=== PATIENT | female | born 1985 | race Caucasian/White ===

== ENCOUNTER 2016-05-14 11:39 | Emergency (ER) | payer MEDICARE, MEDICAID ==
[2016-05-14 12:02] VITALS: BP 129/84; PULSE 80; TEMP 97.5
[2016-05-14 12:03] VITALS: BMI 27.6
--- NOTE | 2016-05-14 12:10 | EDPRACDOC ---
- General Information Chief Complaint: Wound Stated Complaint: ABSCESS Time Seen by Provider: 05/14/16 12:03 Information Source: Patient Mode of Arrival:: Car Home Medications: Home Medications Buprenorphine HCl [Subutex] 4 mg SL DAILY 02/05/16 Clonazepam 1 mg PO BID 02/05/16 Hydrocodone/Acetaminophen [Lortab 5-325 mg Tablet] 1 each PO Q4H PRN #15 tablet 02/05/16 Ibuprofen 600 mg PO Q6H PRN #20 tablet 02/05/16 Lamotrigine [Lamictal] 100 mg PO BID 02/05/16 Naloxegol Oxalate [Movantik] 25 mg PO DAILY PRN 02/05/16 Prazosin HCl [Minipress] 2 mg PO DAILY 02/05/16 Sulfamethoxazole/Trimethoprim [Bactrim Ds Tablet] 1 tab PO BID #14 tab 02/05/16 Ziprasidone HCl [Geodon] 60 mg PO DAILY 02/05/16 Ketorolac Tromethamine [Toradol] 10 mg PO Q6H PRN #20 tab 05/14/16 Sulfamethoxazole/Trimethoprim [Bactrim Ds Tablet] 1 tab PO BID #14 tab 05/14/16 Allergies/Adverse Reactions: Allergies Allergy/AdvReac Type Severity Reaction Status Date / Time Penicillins Allergy Severe Unknown Verified 05/14/16 12:18 - History of Present Illness Onset: SEVERAL DAYS HPI: PT PRESENTS WITH RED, WARM, PAINFUL MASS UNDER HER LEFT AXILLA. STATES IT HAS BEEN THERE FOR SEVERAL DAYS. DENIES FEVER, CHILLS, NAUSEA OR VOMITING. Location: Reports: Extremity (LEFT AXILLA) Last Tetanus: No Relevent History Of: Reports: IV Drug Use Prior Abscess: Reports: Same Pain: Reports: Mild, Moderate Quality: Reports: Painful, Red Associated Signs & Symptoms: Reports: None ED Past Medical History - History Reviewed Yes Nurses notes reviewed and agree except as marked - Patient Medical History Respiratory History: Reports: Asthma Psychological History: Reports: Depression, Bipolar Disorder, Substance Use Disorder Surgical History: Reports: Other (BTL, BLADDER TACK) - Social Medical History Smoking Status: Heavy tobacco smoker (5 or more cigarettes/day or daily pipe/ cigar) Social History: Reports: Substance Use Disorder EDM Review of Systems - Review of Systems ROS Negative Except as Marked: Yes All systems reviewed and were negative except as marked - Physical Exam Constitutional: Alert Oriented to: Time, Person, Place Last recorded Vital Signs: Last Vital Signs Temp 97.5 F 05/14/16 12:02 Pulse 80 05/14/16 12:02 Resp 18 05/14/16 12:02 BP 129/84 05/14/16 12:02 Pulse Ox 100 05/14/16 12:02 Oxygen Pulse Oxygen Saturation 100 O2 Device Oxygen Flow Rate Fraction of Inspired Oxygen ( FIO2) - HEENT Head: Normal ( normocephalic) Eye Exam: Normal (PERRL, EOMI, Sclera white) Oropharynx: Normal (Pharynx:Moist without exudate,Gums-no swelling) Nose: No Symptoms Reported (septum midline) Neck: Normal (FROM, trachea at midline) - Respiratory/Cardiovascular Respiratory: Normal - CTA (BBS clear to auscultation without adventitious sounds ) Cardiovascular: Normal (RRR without murmur, gallop or rub) - GI Auscultation: Normal (NABS) Palpation: Normal (Soft,No rebound or guarding, non distended) Tenderness: Non tender Mackey's Sign: Negative Rectal Exam: Deferred - Musculoskeletal Back: Normal (Non-Tender) Extremities: Normal (Normal tone, Pulses 2+ No cyanosis or edema, FROM) - Integumentary Skin: Normal, Warm, Dry Lymphatics: Normal (no adenopathy) - Neurologic Memory Impaired: Normal Motor Function: Normal (Normal tone, Pulses 2+ No cyanosis or edema, FROM) Cranial Nerve: Normal (CN II-X11 intact sensation, strength 5/5) Cerebellar: Normal Mood Description: Normal Perception: Normal ED Abscess/Mass Exam - Integumentary Skin: Normal Mass: Size (PLUM), Red, Tender, Firm, Local Cellulitis Lymphatics: Normal ED Procedures - Incision and Drainage Informed of risks, benefits and alternatives described.: Yes Informed Consent Signed: Verbal Site: LEFT AXILLA Indication: Painful Mass Anesthetic: Lidocaine, with Epi Prep: Betadine Blade Size: 11 Incised Site drained: Reports: Blood, Pus - Differential Diagnosis Abscess, Cellulitis Decision Time to Discharge: 12:33 - Departure Disposition: Home Condition: Stable Final Diagnosis: Abscess Cellulitis Qualifiers: Site of cellulitis: extremity Site of cellulitis of extremity: axilla Laterality: left Qualified Code(s): L03.112 - Cellulitis of left axilla Instructions: Abscess (ED), Cellulitis (ED) Education/Counseling Given To: Patient Education/Counseling Given Regarding: Diagnosis, Treatment, Prognosis, Follow Up Referrals: Keven Son MD [Primary Care Provider] - One Week Prescriptions: Ketorolac Tromethamine [Toradol] 10 mg PO Q6H PRN #20 tab PRN Reason: Pain Sulfamethoxazole/Trimethoprim [Bactrim Ds Tablet] 1 tab PO BID #14 tab Additional Instructions: KEEP AREA CLEAN AND DRY. CHANGE DRESSING TWICE A DAY. RETURN TO THE ED IN TWO DAYS FOR A WOUND CHECK. RETURN SOONER IF THE AREA WORSENS OR IF YOU BEGIN TO SHOW SIGNS OR SYMPTOMS OF INFECTION SUCH NAUSEA, VOMITING, CHILLS, FEVER. TAKE ALL YOUR ANTIBIOTICS PRESCRIBED. FOLLOW UP WITH PRIMARY CARE PROVIDER NEXT WEEK. KEEP AREA ELEVATED AND YOU MAY PLACE ICE ON THE AREA FOR COMFORT.
[2016-05-14] MEDS: TRIMETHOPRIM-SULFAMETHOXAZOLE TAB PO ONE (12:15)
[2016-05-14] MEDS: KETOROLAC TROMETHAMINE 10 MG TAB PO ONE (12:15)
== END 2016-05-14 12:40 | disposition home or self-care (01) ==
LOC: EDMC 11:39
DX: L03.112 Cellulitis of left axilla (principal)
CPT/HCPCS: 10060; 99283; A9270; J3490